=== PATIENT | female | born 1925 | race Caucasian/White ===

== ENCOUNTER → 2016-05-29 | Outpatient (CLI) | payer MEDICARE ==
[~2016-05-29] MED LIST: ROPIVACAINE 1% 10 MG/ML (NAROPIN) 10 ML AMPUL ONE; SODIUM CHLORIDE VIAL (PF) 10 ML IV ONE; methylPREDNISolone 80 MG/ML (DEPO MEDROL) VIAL IM ONE
== END ==
LOC: PMC 09:55
PROVIDERS: ATTEND Family Medicine
DX: M48.06 Spinal stenosis, lumbar region (principal)
CPT/HCPCS: 62323; J1040; J2795; J7050

== ENCOUNTER → 2016-08-23 | Outpatient (CLI) | payer MEDICARE ==
[~2016-08-23] MED LIST changes: +ASPI-134 PO; +ASPI-860 PO; +ATOR20TA PO; +BIFI4CAP PO; +CLON1TAB3 PO; +CLPD75T PO; +DILT180T9 PO; +FRSM20T PO; +LORA0.5T PO; +MIRALAX 17 GM P17 GM PO; +NEBI5TAB8 PO; +NITR0.4T7 SL; +PANT40TA3 PO; -ROPIVACAINE 1% 10 MG/ML (NAROPIN) 10 ML AMPUL ONE; -SODIUM CHLORIDE VIAL (PF) 10 ML IV ONE
--- NOTE | 2016-08-26 09:37 | PAIN MANAGEMENT ---
Date of note: 08/23/2016 Procedure: Epidural steroid injection This is an 89-year-old patient of Dr. Abdias Wray. The patient presents with a longstanding history of lumbar radicular pain. She has had a previous epidural and has done well. She is just recently moving to the [facility] and has found the overall process kind of uncomfortable for her back. Informed consent was achieved for an epidural steroid injection at L5-S1. Orders for procedure verified. Patient denies any bleeding tendencies. After informed consent obtained, the patient was positioned for the lumbar epidural steroid injection. The area was prepped and draped using aseptic technique. The skin and overlying tissues were localized using 3 mL of 1% Preservative-Free lidocaine using a 25-gauge 1.5-inch needle. A 20-gauge Tuohy needle was advanced, using "loss of resistance" technique, to the epidural space. No blood, cerebral spinal fluid, pain, or paresthesia noted on entry of the epidural space. A 1 mL solution of Depo-Medrol 80 mg was injected slowly without mass volume effect. The patient was placed in supine position 15 minutes prior to being released with proper leg strength and vitals. Pre- and post procedure vital signs stable with no sensory or motor deficit noted. Instruction on followup contact and care provided to the patient.
== END ==
LOC: PMC 13:32
PROVIDERS: ATTEND Family Medicine
DX: M48.07 Spinal stenosis, lumbosacral region (principal)
CPT/HCPCS: 62322; J1040

== ENCOUNTER → 2016-09-21 | Outpatient (CLI) | payer MEDICARE ==
[~2016-09-21] MED LIST changes: -methylPREDNISolone 80 MG/ML (DEPO MEDROL) VIAL IM ONE
[2016-09-21 09:12] LABS: BASOPHILS % (AUTO) 0 % (0-2); EOSINOPHILS # (AUTO) 0.1 10^3uL; EOSINOPHILS % (AUTO) 2 % (0-4); MEAN CORPUSCULAR HEMOGLOBIN 30.9 PG (26.0-34.0); MEAN CORPUSCULAR HGB CONC 33.2 g/dL (31.0-37.0); MEAN CORPUSCULAR VOLUME 93 FL (80-100); MEAN PLATELET VOLUME 10.5 FL (6.0-9.5); MONOCYTES # (AUTO) 0.4 X10^3; MONOCYTES % (AUTO) 8 % (3-11); NEUTROPHILS # (AUTO) 2.8 X10^3; NEUTROPHILS % (AUTO) 53 % (51-67); PLATELET COUNT 170 10^3uL (150-450); WHITE BLOOD COUNT 5.41 10^3uL (4.0-11.0)
[2016-09-21 09:29] LABS: BILIRUBIN,URINE Negative (Negative); CLARITY,URINE Cloudy; COLOR,URINE Yellow; GLUCOSE, URINE (UA) Negative (Negative); LEUKOCYTE ESTERASE ,URINE 1+ (Negative); PH,URINE 5.5 (5.0 - 8.0); UROBILINOGEN,URINE 0.2 mg/dL (0.2-1.0)
[2016-09-21 09:30] LABS: ALBUMIN 4.3 g/dL (3.4-5.0); ANION GAP 16.4 MEQ/L (3-15); CALCULATED IONIZED CALCIUM 4.4 mg/dL (3.8-4.6)
[2016-09-21 10:04] LABS: URINE CENTRIFUGED VOLUME 10 mL
== END ==
LOC: LAB 08:42
PROVIDERS: ATTEND Family Medicine
DX: R79.89 Other specified abnormal findings of blood chemistry (principal); E78.2 Mixed hyperlipidemia; D50.8 Other iron deficiency anemias; N39.0 Urinary tract infection, site not specified; G72.0 Drug-induced myopathy; K71.2 Toxic liver disease with acute hepatitis; E13.65 Other specified diabetes mellitus with hyperglycemia; E83.42 Hypomagnesemia; E03.4 Atrophy of thyroid (acquired); M81.0 Age-related osteoporosis without current pathological fracture
CPT/HCPCS: 36415; 80053; 80061; 81003; 81015; 82306; 82550; 82977; 83036; 83735; 84436; 84443; 85025; 87088; 87147

== ENCOUNTER → 2016-10-08 | Outpatient (CLI) | payer MEDICARE ==
--- NOTE | 2016-10-08 11:07 | Diagnostic Imaging Report ---
INDICATION: Chronic atrial fib. Comparison with 01/23/2015. FINDINGS: Mild cardiomegaly remains present. 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 The lungs are well-aerated. There are no infiltrate. No pneumothorax or pleural effusion. No hilar adenopathy. IMPRESSION: Stable chest when compared with previous exam. Dictated by: Dictated on workstation # [id number]
== END ==
LOC: RAD 10:27
PROVIDERS: ATTEND Family Medicine
DX: I48.1 Persistent atrial fibrillation (principal)
CPT/HCPCS: 71020; 93005